=== PATIENT | male | born 1965 | race Caucasian/White ===

== ENCOUNTER 2018-05-09 15:54 | Emergency (ER) | payer MEDICAID, OTHER ==
[2018-05-09 16:28] VITALS: TEMP 98.2; BMI 22.2
--- NOTE | 2018-05-09 17:03 | ED PDOC ---
Arrival/HPI <Joseph Sarah - Last Filed: 05/09/18 17:13> - General Historian: Patient - History of Present Illness Narrative History of Present Illness (Text): 05/09/18 16:59 Patient is a 53 year old male with no significant past medical history who presents to the emergency department for a head laceration. Patient states that he was home when a ladder fell and hit him on the head. He states that he does have a left sided headache that radiates to the jaw. He rates the pain ia 7/10. He denies any dizziness, changes in vision, nausea/vomiting, chest pain, palpitations, sob, abdominal pain. Tetanus status not up to date. PMD: none Allergies: NKDA Medications: Denies Medical History: Denies Surgical History: Hemorrhoidectomy Social History: Drinks wine occasionally, denies tobacco/drug use Family History: Diabetes, Hypertension Time/Duration: Prior to Arrival Symptom Onset: Sudden Severity Level: 7, Moderate <Rupa Stone - Last Filed: 05/09/18 17:39> - General Chief Complaint: Abnormal Skin Integrity Time Seen by Provider: 05/09/18 16:59 Past Medical History - Provider Review Nursing Documentation Reviewed: Yes - Infectious Disease Hx of Infectious Diseases: None - Psychiatric Hx Substance Use: No - Anesthesia Hx Anesthesia: No <Rupa Stone - Last Filed: 05/09/18 17:39> Family/Social History - Physician Review Nursing Documentation Reviewed: Yes Family/Social History: Diabetes, Hypertension Smoking Status: Never Smoked Hx Alcohol Use: Yes Frequency of alcohol use: Socially Hx Substance Use: No Hx Substance Use Treatment: No <Rupa Stone - Last Filed: 05/09/18 17:39> Allergies/Home Meds <KearaJoseph - Last Filed: 05/09/18 17:13> <Rupa Stone - Last Filed: 05/09/18 17:39> Allergies/Adverse Reactions: Allergies No Known Allergies Allergy (Verified 05/06/14 17:29) Home Medications: Home Meds Medication Instructions Recorded Confirmed No Known Home Med 05/09/18 05/09/18 Review of Systems - Physician Review All systems were reviewed & negative as marked: Yes - Review of Systems Constitutional: Normal. absent: Fatigue, Fevers Eyes: Normal. absent: Vision Changes ENT: Normal. absent: Hearing Changes Respiratory: Normal. absent: SOB, Cough Cardiovascular: Normal. absent: Chest Pain, Palpitations Gastrointestinal: Normal. absent: Abdominal Pain, Constipation, Diarrhea, N ausea, Vomiting Genitourinary Male: Normal. absent: Dysuria Skin: Normal. absent: Rash Neurological: Normal, Headache. absent: Dizziness <ChaseRupa - Last Filed: 05/09/18 17:39> Physical Exam Vital Signs Temp Pulse Resp BP Pulse Ox 05/09/18 16:28 98.2 F 75 18 134/86 97 <KearaJoseph - Last Filed: 05/09/18 17:13> Vital Signs Reviewed: Yes Vital Signs Temp Pulse Resp BP Pulse Ox 05/09/18 16:28 98.2 F 75 18 134/86 97 Temperature: Afebrile Blood Pressure: Normal Pulse: Regular Respiratory Rate: Normal Appearance: Positive for: Non-Toxic Pain Distress: None Mental Status: Positive for: Alert and Oriented X 3 - Systems Exam Head: Present: Normocephalic, Laceration (4cm scalp laceration to the left frontal region) Pupils: Present: PERRL Extroacular Muscles: Present: EOMI Conjunctiva: Present: Normal Mouth: Present: Moist Mucous Membranes Pharnyx: Present: Normal Neck: Present: Normal Range of Motion. No: Meningeal Signs Respiratory/Chest: Present: Clear to Auscultation, Good Air Exchange. No: Accessory Muscle Use Cardiovascular: Present: Regular Rate and Rhythm, Normal S1, S2 Upper Extremity: Present: Normal Inspection Lower Extremity: Present: Normal Inspection Skin: Present: Warm, Dry, Normal Color Psychiatric: Present: Alert, Oriented x 3 <Rupa Stone - Last Filed: 05/09/18 17:39> Medical Decision Making ED Course and Treatment: 05/09/18 17:13 53 year old male presents to the Emergency department for evaluation of laceration to his head. In agreement with resident note which contains more details about the patient. Patient seen and evaluated with resident. Came up with plan and treatment together. <KearaJoseph - Last Filed: 05/09/18 17:13> ED Course and Treatment: 05/09/18 17:09 Patient seen and examined at bedside. Scalp laceration irrigated and cleaned with normal saline. On exam, patient has a 4cm laceration to the left frontal region. For headache, will order Motrin 600mg PO x 1. Tetanus vaccine also ordered 05/09/18 17:31 Scalp laceration repaired with laura. Patient tolerated the procedure well. Bacitracin applied. Patient instructed to return to the emergency department in 7-10 days for staple removal. - Procedure PROCEDURE NOTE (Text): 05/09/18 17:32 Scalp laceration: 4cm scalp laceration cleaned and irrigated with normal saline. Wound was reapproximated with 4 laura. Hemostasis achieved. Patient tolerated the procedure well. <Rupa Stone - Last Filed: 05/09/18 17:39> - PA / OCCUPATIONAL HEALTH TECHNICIAN / Resident Statement / has reviewed & agrees with the documentation as recorded. MD/ has examined the patient and agrees with the treatment plan. - Scribe Statement The provider has reviewed the documentation as recorded by the Scribe Anna Marie Alarcon. All medical record entries made by the Scribe were at my direction and personally dictated by me. I have reviewed the chart and agree that the record accurately reflects my personal performance of the history, physical exam, medical decision making, and the department course for this patient. I have also personally directed, reviewed, and agree with the discharge instructions and disposition. <Joseph Sarah - Last Filed: 05/09/18 17:13> Disposition/Present on Arrival <Joseph Sarah - Last Filed: 05/09/18 17:13> - Present on Arrival Any Indicators Present on Arrival: No History of DVT/PE: No History of Uncontrolled Diabetes: No Urinary Catheter: No History of Decub. Ulcer: No History Surgical Site Infection Following: None - Disposition Have Diagnosis and Disposition been Completed?: Yes Disposition Time: 17:36 Patient Plan: Discharge <Rupa Stone - Last Filed: 05/09/18 17:39> - Disposition Diagnosis: Laceration of scalp Disposition: HOME/ ROUTINE Patient Problems: Current Active Problems Problem Status Onset Laceration of scalp Acute Condition: GOOD Discharge Instructions (ExitCare): Laceration Repair With [place] (DC) Additional Instructions: - Please take Motrin OTC as needed for headache - Return to the Emergency Dept in 7-10 days for staple removal - If you develop any worsening symptoms, return to Emergency Department sooner Referrals: [facility] [Provider Group] - Follow up with primary Forms: [employer] (Serbian)
[2018-05-09] MEDS ORDERED: TDAP Vaccine 0.5 mL Syr IM ONE (17:30)
[2018-05-09 18:02] VITALS: BP 130/80; PULSE 72; RESP 17; O2SAT 99
== END 2018-05-09 18:01 | disposition home or self-care (01) ==
LOC: ED 15:54
DX: S01.01XA Laceration without foreign body of scalp, initial encounter (principal); W20.8XXA Other cause of strike by thrown, projected or falling object, initial encounter; Z23 Encounter for immunization

== ENCOUNTER 2018-05-24 14:36 | Emergency (ER) | payer MEDICAID ==
[2018-05-24 14:38] VITALS: BMI 22.2
[2018-05-24 15:01] VITALS: BP 132/74; PULSE 70; RESP 18; TEMP 97.7; O2SAT 98
--- NOTE | 2018-05-24 15:09 | ED PDOC ---
Arrival/HPI - General Chief Complaint: Suture/Staple Removal Time Seen by Provider: 05/24/18 14:39 Historian: Patient - History of Present Illness Narrative History of Present Illness (Text): 05/24/18 15:53 53yr old male presents today for staple removal. Patient states he was hit in the head 2 weeks ago with a ladder and sustained a laceration requiring 4 laura. Patient states that over the two-week period he pulled out two of the laura. pt denies cp or sob. denies neck or back pain. no headaches dizziness or weakness. no other complaints. Past Medical History - Provider Review Nursing Documentation Reviewed: Yes - Travel History Have you recently traveled outside [place] w/in the past 3 mons?: No - Infectious Disease Hx of Infectious Diseases: None - Psychiatric Hx Substance Use: No - Anesthesia Hx Anesthesia: No Family/Social History - Physician Review Nursing Documentation Reviewed: Yes Family/Social History: Unknown Family HX Smoking Status: Never Smoked Hx Alcohol Use: Yes Hx Substance Use: No Hx Substance Use Treatment: No Allergies/Home Meds Allergies/Adverse Reactions: Allergies No Known Allergies Allergy (Verified 05/06/14 17:29) Home Medications: Home Meds Medication Instructions Recorded Confirmed No Known Home Med 05/09/18 05/09/18 Review of Systems - Review of Systems Constitutional: absent: Fatigue, Fevers Eyes: absent: Vision Changes, Photophobia, Eye Pain Respiratory: absent: SOB, Cough Gastrointestinal: absent: Abdominal Pain, Nausea, Vomiting Skin: Laceration Neurological: absent: Headache, Dizziness Psychiatric: absent: Anxiety, Depression Physical Exam Vital Signs Reviewed: Yes Vital Signs Temp Pulse Resp BP Pulse Ox 05/24/18 14:38 97.7 F 70 18 132/74 98 Temperature: Afebrile Blood Pressure: Normal Pulse: Regular Respiratory Rate: Normal Appearance: Positive for: Well-Appearing, Non-Toxic, Comfortable Pain Distress: None Mental Status: Positive for: Alert and Oriented X 3 - Systems Exam Head: Present: Laceration (healing laceration with [address]; no edema, no erythema; no ecchymosis; no tenderness. ) Mouth: Present: Moist Mucous Membranes Neck: Present: Normal Range of Motion Respiratory/Chest: Present: Clear to Auscultation, Good Air Exchange. No: Respiratory Distress, Accessory Muscle Use Cardiovascular: Present: Regular Rate and Rhythm, Normal S1, S2. No: Murmurs Neurological: Present: GCS=15, Speech Normal Skin: Present: Warm, Dry, Normal Color. No: Rashes Psychiatric: Present: Alert, Oriented x 3 Medical Decision Making ED Course and Treatment: 05/24/18 16:04 Patient is nontoxic well-appearing in no distress. Vital signs are stable. staple removal; 2 laura removed Wound healing well without signs of infection I advised the patient to f/u with PMD return if symptoms worsen persist or if new symptoms develop Patient verbalizes understanding of discharge instructions and need for immediate followup. all aspects of this case were discussed the attending of record. Impression: staple removal Keep the wound clean and dry Apply bacitracin twice daily Follow up with primary care physician within the next 2 days Return immediately if symptoms worsen persist or if new symptoms develop Disposition/Present on Arrival - Present on Arrival Any Indicators Present on Arrival: No History of DVT/PE: No History of Uncontrolled Diabetes: No Urinary Catheter: No History of Decub. Ulcer: No History Surgical Site Infection Following: None - Disposition Have Diagnosis and Disposition been Completed?: Yes Diagnosis: Removal of laura Disposition: HOME/ ROUTINE Disposition Time: 15:06 Patient Plan: Discharge Condition: GOOD Discharge Instructions (ExitCare): Staple Removal Additional Instructions: follow up with the primary care physician within the next 2 days return if any concerning symptoms develop. Referrals: Akosua Manning MD [Medical Doctor] - Follow up with primary [facility] [employer] [facility] [Outside] - Follow up with primary Forms: [employer] (Indonesian), WORK NOTE
== END 2018-05-24 15:15 | disposition home or self-care (01) ==
LOC: ED 14:36
DX: Z48.02 Encounter for removal of sutures (principal)